=== PATIENT | male | born 1960 | race Caucasian/White ===

== ENCOUNTER 2016-07-01 18:14 | Inpatient (IN) | payer OTHER ==
[~2016-07-01] VITALS: Ht 172.7 cm; Wt 65.1 kg
[~2016-07-01 18:14] MED LIST: NALOXONE 2 MG SYG ONE
[2016-07-01] MEDS ORDERED: NALOXONE 2 MG/2 ML SYG 2 MG in DEXTROSE 5% 498 ML IV SCH ×3 (18:30→22:00)
[2016-07-01] MEDS ORDERED: SOD CHLORIDE 0.9% 1,000 ML IV ONE (18:30)
[2016-07-01] MEDS ORDERED: NALOXONE 2 MG SYG ONE (18:45)
--- NOTE | 2016-07-01 18:47 | ERA ---
ER Documentation Chief Complaint Date/Time DATE: 07/01/16 TIME: 18:45 Chief Complaint pt susannah RA from car with c/o "OD" friends dropped him off , unk drug HPI Patient is a 56-year-old male who was left in his car "for " After a narcotic overdose. Patient was given Narcan by paramedics and brought in here after being bagged for a couple minutes. Currently he is sitting up in the bed refusing to answer any questions. Remainder review systems are limited. ROS All systems reviewed and are negative except as per history of present illness. 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 Neck: Full range of motion..~ No meningismus. Resp: Clear to auscultation bilaterally Cardio: Regular rate and rhythm, no murmurs Abd: Soft, non tender, non distended. Normal bowel sounds Skin: No petechiae or rashes Back: No midline or flank tenderness Ext: No cyanosis, or edema Neur: Awake and alert, moves all extremities equally, nonfocal Psych: Normal Mood and Affect Result Diagram: 07/02/165 07/02/16 0425 Results 24 hrs Laboratory Tests Test 07/01/16 18:20 Acetaminophen Level < 10.0ug/ml Alanine Aminotransferase (ALT/SGPT) 62IU/L Albumin 4.3g/dl Albumin/Globulin Ratio 1.16 Alkaline Phosphatase 85IU/L Anion Gap 22 Aspartate Amino Transf (AST/SGOT) 52IU/L Basophils # 0.110^3/ul Basophils % 0.7% Blood Urea Nitrogen 8mg/dl Calcium Level 10.0mg/dl Carbon Dioxide Level 25mmol/L Chloride Level 106mmol/L Creatinine 1.20mg/dl Direct Bilirubin 0.00mg/dl Eosinophils # 0.110^3/ul Eosinophils % 0.8% Ethyl Alcohol Level 223.0mg/dl Globulin 3.70g/dl Glucose Level 188mg/dl Hematocrit 43.8% Hemoglobin 14.6g/dl Indirect Bilirubin 0.0mg/dl Lymphocytes # 4.710^3/ul Lymphocytes % 55.1% Mean Corpuscular Hemoglobin 31.1pg Mean Corpuscular Hemoglobin Concent 33.3g/dl Mean Corpuscular Volume 93.2fl Mean Platelet Volume 10.1fl Monocytes # 0.610^3/ul Monocytes % 6.5% Neutrophils # 3.110^3/ul Neutrophils % 36.5% Nucleated Red Blood Cells # 0.010^3/ul Nucleated Red Blood Cells % 0.0/100WBC Platelet Count 30844^3/UL Potassium Level 3.9mmol/L Red Blood Count 4.7010^6/ul Red Cell Distribution Width 12.4% Salicylates Level < 1.0mg/dl Sodium Level 149mmol/L Total Bilirubin 0.0mg/dl Total Protein 8.0g/dl White Blood Count 8.510^3/ul Current Medications Medications (Trade) Dose Ordered Sig/Arcenio Route PRN Reason Start Time Stop Time Status Last Admin Dose Admin Naloxone HCl 2 mg/ Dextrose 500 ml @ 0 mls/hr TITRATE IV 07/01/16 18:30 07/01/16 21:49 DC 07/01/16 19:24 Sodium Chloride (NS) 1,000 ml @ 1,000 mls/hr Q1H ONCE IV 07/01/16 18:30 07/01/16 19:29 DC 07/01/16 20:18 Naloxone HCl 2 mg 2 mg STK-MED ONCE .ROUTE 07/01/16 18:45 07/01/16 18:46 DC Naloxone HCl/ Dextrose (Narcan/D5W) 500 ml @ 0 mls/hr TITRATE IV 07/01/16 20:30 07/01/16 21:51 DC 07/01/16 20:40 Procedures/MDM Differential includes but is not limited to narcotic overdose, polysubstance abuse, altered mental status, head injury EKG: Rate/Rhythm: Normal Sinus Rhythm tachycardia at 100 bpm without any evidence for acute ischemia noted, no old EKG available for comparison, motion artifact noted QRS, ST, T-waves: No changes consistent w/ acute ischemia Impression: No evidence of ischemia or arrhythmia cxr no acute process noted Ct head : no acute process noted critical care time of 40 minutes not to include procedures. I spoke with the admitting doctor. We have attempted to wean the pt off the narcan drip but he becomes unresponsive and has trouble breathing whenever we stop the drip. I was informed he will need to go to the ICU while on the narcan drip. He will be admitted overnight until cleared medically. Departure Diagnosis: Primary Impression: Overdose Qualified Code: T50.904A - Overdose, undetermined intent, initial encounter Condition: BERT Min Jul 01, 2016 18:47
[2016-07-01 18:53] LABS: ADD SCAN DIFF NO
[2016-07-01 18:57] LABS: BASOPHIL # 0.1 10^3/ul (0.0-0.1); BASOPHILS % 0.7 % (0.0-2.0); EOSINOPHILS # 0.1 10^3/ul (0.0-0.5); EOSINOPHILS % 0.8 % (0.0-7.0); HEMATOCRIT 43.8 % (42.0-52.0); HEMOGLOBIN 14.6 g/dl (14.0-18.0); LYMPHOCYTES # 4.7 10^3/ul (0.8-2.9); LYMPHOCYTES % 55.1 % (15.0-51.0); MEAN CORPUSCULAR HEMOGLOBIN 31.1 pg (29.0-33.0); MEAN CORPUSCULAR HGB CONC 33.3 g/dl (32.0-37.0); MEAN CORPUSCULAR VOLUME 93.2 fl (82.0-101.0); MEAN PLATELET VOLUME 10.1 fl (7.4-10.4); MONOCYTE # 0.6 10^3/ul (0.3-0.9); MONOCYTES % 6.5 % (0.0-11.0); NEUTROPHIL # 3.1 10^3/ul (1.6-7.5); NEUTROPHILS % 36.5 % (39.0-77.0); PLATELET COUNT 252 10^3/UL (140-415); RED CELL DISTRIBUTION WIDTH 12.4 % (11.5-14.5); WHITE BLOOD COUNT 8.5 10^3/ul (4.8-10.8)
[2016-07-01 19:03] LABS: ALBUMIN 4.3 g/dl (3.3-4.9); CHLORIDE 106 mmol/L (97-110)
[2016-07-01 19:04] LABS: POTASSIUM 3.9 mmol/L (3.5-5.1); SODIUM 149 mmol/L (135-144)
[2016-07-01 19:06] LABS: ALBUMIN/GLOBULIN RATIO 1.16; ANION GAP 22 (8-16); ASPARTATE AMINO TRANSFERASE 52 IU/L (15-46); BLOOD UREA NITROGEN 8 mg/dl (7-20); CARBON DIOXIDE 25 mmol/L (21-31)
[2016-07-01 19:07] LABS: ACETAMINOPHEN < 10.0 ug/ml (10.0-30.0); ALANINE AMINOTRANSFERASE 62 IU/L (13-69); ALKALINE PHOSPHATASE 85 IU/L (42-121); GLUCOSE 188 mg/dl (70-220)
[2016-07-01 19:08] LABS: SALICYLATE < 1.0 mg/dl (5.0-30.0)
--- NOTE | 2016-07-01 19:55 | RADRPT ---
PROCEDURE: CT Brain without contrast. CLINICAL INDICATION: Altered level of consciousness. TECHNIQUE: A CT of the brain without contrast was performed utilizing axial sections from the skul l base through the vertex. The patient was scanned without intravenous contrast enhancement. Sagitta l and coronal reformatted images were obtained using the data from the axial images. Total exam DLP is 720.23 mGy-cm. CTDIvol is 45.01 mGy. One or more of the following dose reduction techniques we re used: Automated exposure control, adjustment of the mA and/or kV according to patient size, use o f iterative reconstruction technique. COMPARISON: None available FINDINGS: There is normal rabago-white matter differentiation. The ventricles and cisterns are normal. There is no intracranial hemorrhage or space-occupying lesion. There is no acute skull fracture or lytic lesion. There has been prior surgery with plates and screw s transfixing the inferior and lateral forte of the left orbit. IMPRESSION: 1. Prior left orbital surgery. 2. Otherwise normal noncontrast CT scan of the brain. 3. No intracranial hemorrhage. RPTAT: QQ .Heladio Salas MD, MD Date Time Electronically viewed and signed by .Heladio Salas MD, MD on 07/01/2016 19:54 .R/
[2016-07-01] MEDS ORDERED: ONDANSETRON 4 MG INJ IV PRN (22:00)
[2016-07-01] MEDS ORDERED: LORAZEPAM 2 MG INJ IV PRN (22:00)
[2016-07-01] MEDS ORDERED: ALBUTEROL/IPRATROPIUM (NEB) 3 ML AMP HHN PRN (22:00)
[2016-07-01] MEDS ORDERED: ACETAMINOPHEN 325 MG TAB PO PRN (22:00)
[2016-07-01] MEDS ORDERED: hydrALAzine 20 MG INJ IV PRN (22:00)
[2016-07-01] MEDS ORDERED: NA PHOSPHATE/BIPHOS 133 ML ENEMA PR PRN (22:00)
[2016-07-01] MEDS ORDERED: GLUCAGON 1 MG INJ IM PRN (22:00)
[2016-07-01] MEDS ORDERED: HYDROCODONE/APAP (5/325) TAB PO PRN (22:00)
[2016-07-01] MEDS ORDERED: DOCUSATE SODIUM 100 MG CAP PO PRN (22:00)
[2016-07-01] MEDS ORDERED: GLUCOSE GEL 15 GRAM TUBE PO PRN ×2 (22:00)
[2016-07-01] MEDS ORDERED: NITROGLYCERIN (SL) 0.4 MG TAB SL PRN (22:00)
[2016-07-01] MEDS ORDERED: MAGNESIUM HYDROXIDE 30ML CUP PO PRN (22:00)
[2016-07-01] MEDS ORDERED: DEXTROSE 50% 50 ML SYRINGE IV PRN ×2 (22:00)
[2016-07-01] MEDS ORDERED: GLUCOSE GEL 15 GRAM TUBE BUCCAL PRN (22:00)
[2016-07-01] MEDS ORDERED: NACL 0.9% 3 ML SYG IV SCH (22:00)
[2016-07-01 22:37] LABS: ADD UMIC NO; URINE BILIRUBIN (Dip) NEGATIVE (NEGATIVE); URINE BLOOD (Dip) NEGATIVE (NEGATIVE); URINE COLOR LT. YELLOW (YELLOW); URINE GLUCOSE (Dip) NEGATIVE (NEGATIVE); URINE KETONES (Dip) NEGATIVE (NEGATIVE); URINE LEUKOCYTE ESTERASE (Dip) NEGATIVE (NEGATIVE); URINE NITRITE (Dip) NEGATIVE (NEGATIVE); URINE TOTAL PROTEIN (Dip) NEGATIVE (NEGATIVE); URINE UROBILINOGEN (Dip) 0.2 E.U./dL (0.1-1.0)
[2016-07-01 22:59] LABS: BARBITURATES Negative (NEGATIVE); BENZODIAZEPINES Negative (NEGATIVE); CANNABINOIDS Negative (NEGATIVE)
[2016-07-01 23:00] LABS: COCAINE Positive (NEGATIVE); OPIATES Positive (NEGATIVE)
[2016-07-01] MEDS ORDERED: MULTIVITAMINS 10 ML, THIAMINE 100 MG, FOLIC ACID 1 MG, MAGNESIUM SULFATE 2 GM in SOD CH... IV ONE (23:30)
[2016-07-02 00:55] VITALS: PULSE 93; TEMP 98.3
[2016-07-02] MEDS ORDERED: INSULIN ASPART [NOVOLOG] 3 ML PEN SC SCH ×2 (01:00→07:30)
[2016-07-02 01:12] VITALS: Ht 172.7 cm; Wt 65.1 kg
[2016-07-02] MEDS: ACCUCHECK AT 2AM (Patients on SS coverage) XX SCH ×2 (02:00→21:07)
[2016-07-02 03:00] VITALS: BP 123/81; RESP 17
[2016-07-02] MEDS: PANTOPRAZOLE 40 MG INJ IV SCH (05:42)
[2016-07-02 05:49] LABS: CHOL/HDL RATIO 1.9 RATIO
--- NOTE | 2016-07-02 05:54 | HP ---
DATE OF ADMISSION: 07/01/2016 The patient was seen and examined by me on 07/01/2016 at 10:00 p.m. CHIEF COMPLAINT: Altered mental status and overdose. HISTORY OF PRESENT ILLNESS: The patient is a 56-year-old male with no significant past medical hist ory who apparently was found left in his car after some friends abandoned him. Most of the informat ion was obtained from the ER documentation and speaking with the ER staff and nursing as the patient is somewhat uncooperative right now with the HPI. Apparently he was "left for " after a narcot ic, specifically heroin, overdose. Paramedics found him and gave him Narcan, and he was bagged for a couple of minutes before coming to the ER. Per ER documentation, whenever Narcan tried to be turn ed off, the patient will become sleepy and lethargic, so he was on a Narcan drip for a while in the ER. Full review systems could not be obtained. His U-tox today was found positive for opiates, pre sumably heroin as well as cocaine and amphetamines, and his blood alcohol level was elevated at 223 as well. PAST MEDICAL HISTORY: As stated above. ALLERGIES: UNABLE TO OBTAIN. MEDICATIONS AT HOME: Apparently none. PAST SURGICAL HISTORY: He has had facial reconstruction surgery in the past. He has had some kind of arm surgery in the past and possible eye surgery in the past. FAMILY HISTORY: Noncontributory. SOCIAL HISTORY: Positive for IV drug abuse as mentioned above. Also, positive for smoking and posi tive for alcohol abuse. PHYSICAL EXAMINATION: VITAL SIGNS: Today, T-max 98.3, pulse 92 to 99, respirations 16, blood pressure 126/90, saturating 100% on room air. GENERAL: The patient is lying in bed, no acute distress. HEENT: The left eye is enucleated with an eye patch noted. Otherwise, right eye pupil equal, round , and reactive to light. Extraocular muscles intact. NECK: Supple, no thyromegaly. LUNGS: Clear to auscultation bilaterally. CARDIOVASCULAR: S1, S2 heard. No rubs or gallops. ABDOMEN: Soft, nontender, nondistended. Normal bowel sounds. No rebound or guarding. MUSCULOSKELETAL: No lower extremity edema bilaterally. NEUROLOGIC: No focal deficits. LABORATORIES: CBC is normal. Sodium 149, potassium 3.9, chloride 106, CO2 of 25, BUN 8, creatinine 1.2, glucose 188. LFTs are normal. Again, the U-tox results as mentioned above. Blood alcohol le carol as mentioned above. UA is negative nitrites, negative leukocyte esterase. Head CT was performe d and shows prior left orbital surgery, otherwise normal noncontrast CT scan of the brain. ASSESSMENT AND PLAN: A 56-year-old male presenting with altered mental status secondary to multi-reico bstance drug abuse and overdose and ethanol use. 1. Altered mental status again secondary to most likely drug abuse and overuse and ethanol use. We will admit the patient to med/surg floor. He is a bit more awake and alert presently, somewhat unc ooperative with exam. We will order for Narcan cautiously for the patient ____. For his elevated b lood alcohol level, we will monitor for DTs. He will be given Ativan p.r.n. We will put him on Angelica rium as well as a banana bag. We will get social media manager consult given the fact that he was homele and he overdosed on multiple illicit drugs. Monitor for signs of withdrawal. Check TSH, A1c, li pid panel. Tylenol p.r.n. pain and fevers. 2. Gastrointestinal prophylaxis, PPI. 3. Deep venous thrombosis prophylaxis, heparin subcutaneously. Dictated By: SAMI FERREIRA Conf#: [id number] DID#: [id number]
[2016-07-02 06:24] LABS: ADD SCAN DIFF NO
[2016-07-02 06:55] LABS: THYROID STIMULATING HORMONE 1.78 MIU/L (0.465-4.680)
[2016-07-02 06:59] LABS: BASOPHILS % 0.5 % (0.0-2.0); EOSINOPHILS # 0.1 10^3/ul (0.0-0.5); EOSINOPHILS % 1.5 % (0.0-7.0); HEMATOCRIT 37.6 % (42.0-52.0); HEMOGLOBIN 12.8 g/dl (14.0-18.0); LYMPHOCYTES # 3.2 10^3/ul (0.8-2.9); LYMPHOCYTES % 42.7 % (15.0-51.0); MEAN CORPUSCULAR HEMOGLOBIN 31.6 pg (29.0-33.0); MEAN CORPUSCULAR VOLUME 92.8 fl (82.0-101.0); MEAN PLATELET VOLUME 10.6 fl (7.4-10.4); MONOCYTE # 0.6 10^3/ul (0.3-0.9); MONOCYTES % 7.7 % (0.0-11.0); NEUTROPHIL # 3.6 10^3/ul (1.6-7.5); NEUTROPHILS % 47.3 % (39.0-77.0); PLATELET COUNT 212 10^3/UL (140-415); RED BLOOD COUNT 4.05 10^6/ul (4.70-6.10); RED CELL DISTRIBUTION WIDTH 12.8 % (11.5-14.5); WHITE BLOOD COUNT 7.6 10^3/ul (4.8-10.8)
[2016-07-02 07:13] LABS: POTASSIUM 4.1 mmol/L (3.5-5.1)
[2016-07-02 07:16] LABS: CREATININE 0.81 mg/dl (0.61-1.24); PHOSPHORUS 4.1 mg/dl (2.5-4.9)
[2016-07-02 07:17] LABS: CALCIUM 9.1 mg/dl (8.4-10.2); MAGNESIUM 2.1 mg/dl (1.7-2.5)
[2016-07-02] MEDS: Insulin NOVOLOG SS MILD Algorithm (SS with meals and bedtime) SC SCH ×3 (07:30→17:12)
[2016-07-02] MEDS: CHLORDIAZEPOXIDE 25 MG CAP PO SCH ×3 (08:11→20:43)
[2016-07-02] MEDS: HEPARIN 5,000 UNIT/0.5 ML SYG SC SCH ×2 (08:12→20:47)
[2016-07-02 08:32] VITALS: BP 117/76; RESP 18
[2016-07-02 19:50] VITALS: BP 109/69; RESP 16
[2016-07-02] MEDS: MULTIVITAMINS 10 ML, THIAMINE 100 MG, FOLIC ACID 1 MG in SOD CHLORIDE 0.9% 1,000 ML IVPB SCH (21:02)
--- NOTE | 2016-07-02 21:05 | PN ---
Date/Time of Note Date/Time of Note DATE: 07/02/16 TIME: 21:03 Assessment/Plan VTE Prophylaxis VTE Prophylaxis Intervention: heparin Lines/Catheters IV Catheter Type (from Nrs): Saline Lock Urinary Cath still in place: No Assessment/Plan Assessment/Plan 1. Altered mental status again secondary to most likely drug abuse and overuse and ethanol use. 2. Gastrointestinal prophylaxis, PPI. 3. Deep venous thrombosis prophylaxis, heparin subcutaneously. Pain control IVF SW consult Subjective 24 Hr Interval Summary Free Text/Dictation no suicidal ideation on repetitive questions, alert awake but want to sleep, no pain Exam/Review of Systems Vital Signs Vitals Vital Signs Date Time Temp Pulse Resp B/P Pulse Ox O2 Delivery O2 Flow Rate FiO2 07/02/16 08:32 97.8 74 18 117/76 97 07/02/16 00:55 Room Air 07/01/16 18:30 3 Intake and Output 07/01/16 07/01/16 07/02/16 14:59 22:59 06:59 Intake Total 500 ml 600 ml Output Total 450 ml Balance 500 ml 150 ml Exam GENERAL: The patient is lying in bed, no acute distress. HEENT: The left eye is enucleated with an eye patch noted. Otherwise, right eye pupil equal, round, and reactive to light. Extraocular muscles intact. NECK: Supple, no thyromegaly. LUNGS: Clear to auscultation bilaterally. CARDIOVASCULAR: S1, S2 heard. No rubs or gallops. ABDOMEN: Soft, nontender, nondistended. Normal bowel sounds. No rebound or guarding. MUSCULOSKELETAL: No lower extremity edema bilaterally. NEUROLOGIC: No focal deficits. Results Result Diagram: 07/02/16 0425 07/02/16 0425 Results 24 hrs Laboratory Tests Test 07/01/16 22:13 07/01/16 22:25 07/02/16 04:25 07/02/16 07:47 Urine Amphetamines Screen Positive Urine Barbiturates Negative Urine Benzodiazepines Screen Negative Urine Bilirubin NEGATIVE Urine Cannabinoids Negative Urine Clarity CLEAR Urine Cocaine Screen Positive Urine Color LT. YELLOW Urine Glucose NEGATIVE Urine Hemoglobin NEGATIVE Urine Ketones NEGATIVE Urine Leukocyte Esterase NEGATIVE Urine Nitrite NEGATIVE Urine Opiates Screen Positive Urine Specific Lipan <=1.005 L Urine Total Protein NEGATIVE Urine Urobilinogen 0.2 E.U./dL Urine pH 6.5 Free Thyroxine 0.93 Anion Gap 14 # Basophils # 0.0 Basophils % 0.5 Blood Urea Nitrogen 10 Calcium Level 9.1 Carbon Dioxide Level 26 Chloride Level 104 Cholesterol Level 125 Cholesterol/HDL Ratio 1.9 Creatinine 0.81 Eosinophils # 0.1 Eosinophils % 1.5 Glucose Level 93 # HDL Cholesterol 65 Hematocrit 37.6 L Hemoglobin 12.8 L Hemoglobin A1c 5.4 LDL Cholesterol, Calculated 40 Lymphocytes # 3.2 H Lymphocytes % 42.7 Magnesium Level 2.1 Mean Corpuscular Hemoglobin 31.6 Mean Corpuscular Hemoglobin Concent 34.0 Mean Corpuscular Volume 92.8 Mean Platelet Volume 10.6 H Monocytes # 0.6 Monocytes % 7.7 Neutrophils # 3.6 Neutrophils % 47.3 Nucleated Red Blood Cells # 0.0 Nucleated Red Blood Cells % 0.0 Phosphorus Level 4.1 Platelet Count 212 Potassium Level 4.1 Red Blood Count 4.05 L Red Cell Distribution Width 12.8 Sodium Level 140 Thyroid Stimulating Hormone (TSH) 1.780 Triglycerides Level 101 White Blood Count 7.6 Bedside Glucose 112 Test 07/02/16 11:34 07/02/16 16:42 Bedside Glucose 123 125 Medications Medications Current Medications Ondansetron HCl (Zofran Inj) 4 mg Q6H PRN IV NAUSEA AND/OR VOMITING; Start at 22:00 Acetaminophen (Tylenol Tab) 650 mg Q6H PRN PO PAIN LEVEL 1-3 OR FEVER; Start at 22:00 Acetaminophen/ Hydrocodone Bitart ([place] (5/325)) 1 tab Q6H PRN PO MODERATE PAIN LEVEL 4-6; Start 07/01/16 at 22:00 Docusate Sodium (Colace) 100 mg Q12H PRN PO CONSTIPATION; Start 07/01/16 at 22: 00 Magnesium Hydroxide (Milk Of Mag) 30 ml DAILY PRN PO CONSTIPATION; Start at 22:00 Sodium Biphosphate/ Sodium Phosphate (Fleet Enema) 133 ml DAILY PRN PA CONSTIPATION; Start 07/01/16 at 22:00 Pantoprazole (Protonix Iv) 40 mg DAILY@06 IV Last administered on 07/02/16 05: 42; Admin Dose 40 MG; Start 07/02/16 at 06:00 Heparin Sodium (Porcine) (Heparin (5000 Units/0.5 ml)) 5,000 unit Q12 SC Last administered on 07/02/16 20:47; Admin Dose 5,000 UNIT; Start 07/02/16 at 09:00 Lorazepam (Ativan) 0.5 mg Q6H PRN IV ANXIETY; Start 07/01/16 at 22:00 Hydralazine HCl (Apresoline) 10 mg Q6H PRN IV ELEVATED BLOOD PRESSURE; Start at 22:00 Nitroglycerin 1 tab 1 tab Q5M PRN SL ANGINA; Start 07/01/16 at 22:00 Naloxone HCl/ Dextrose (Narcan/D5W) 500 ml @ 0 mls/hr TITRATE IV ; Start at 22:00 Miscellaneous Information 1 ea NOTE XX ; Start 07/01/16 at 22:00 Glucose (Glutose) 15 gm Q15M PRN PO DECREASED GLUCOSE; Start 07/01/16 at 22:00 Glucose (Glutose) 22.5 gm Q15M PRN PO DECREASED GLUCOSE; Start 07/01/16 at 22: 00 Dextrose (D50w Syringe) 25 ml Q15M PRN IV DECREASED GLUCOSE; Start 07/01/16 at 22:00 Dextrose (D50w Syringe) 50 ml Q15M PRN IV DECREASED GLUCOSE; Start 07/01/16 at 22:00 Glucagon (Glucagen) 1 mg Q15M PRN IM DECREASED GLUCOSE; Start 07/01/16 at 22:00 Glucose (Glutose) 15 gm Q15M PRN BUCCAL DECREASED GLUCOSE; Start 07/01/16 at 22 :00 Chlordiazepoxide (Librium) 25 mg TID PO Last administered on 07/02/16 20:43; Admin Dose 25 MG; Start 07/02/16 at 09:00 Diagnostic Test (Pha) 1 ea 1 ea 02 XX ; Start 07/02/16 at 02:00 Multivitamins/ Thiamine HCl/ Folic Acid/Sodium Chloride (Mvi-12 Adult/ Vitamin B1/Folic Acid/NS) 1,011.2 ml @ 100 mls/ hr DAILY IVPB ; Start 07/02/16 at 20:00 SANTA HORNER MD Jul 02, 2016 21:05
[2016-07-03] MEDS: PANTOPRAZOLE 40 MG INJ IV SCH (05:26)
[2016-07-03 07:53] VITALS: BP 108/55; RESP 20
[2016-07-03] MEDS: MULTIVITAMINS 10 ML, THIAMINE 100 MG, FOLIC ACID 1 MG in SOD CHLORIDE 0.9% 1,000 ML IVPB SCH (09:00)
[2016-07-03] MEDS: CHLORDIAZEPOXIDE 25 MG CAP PO SCH ×2 (09:00→14:49)
[2016-07-03] MEDS: HEPARIN 5,000 UNIT/0.5 ML SYG SC SCH (09:00)
[2016-07-03 13:45] LABS: ADD SCAN DIFF NO
[2016-07-03 13:47] LABS: BASOPHILS % 0.4 % (0.0-2.0); EOSINOPHILS # 0.1 10^3/ul (0.0-0.5); EOSINOPHILS % 2.1 % (0.0-7.0); HEMATOCRIT 40.5 % (42.0-52.0); HEMOGLOBIN 13.7 g/dl (14.0-18.0); LYMPHOCYTES # 1.7 10^3/ul (0.8-2.9); LYMPHOCYTES % 31.3 % (15.0-51.0); MEAN CORPUSCULAR HEMOGLOBIN 31.6 pg (29.0-33.0); MEAN CORPUSCULAR HGB CONC 33.8 g/dl (32.0-37.0); MEAN CORPUSCULAR VOLUME 93.3 fl (82.0-101.0); MEAN PLATELET VOLUME 10.4 fl (7.4-10.4); MONOCYTE # 0.4 10^3/ul (0.3-0.9); MONOCYTES % 7.3 % (0.0-11.0); NEUTROPHIL # 3.1 10^3/ul (1.6-7.5); NEUTROPHILS % 58.7 % (39.0-77.0); PLATELET COUNT 174 10^3/UL (140-415); RED BLOOD COUNT 4.34 10^6/ul (4.70-6.10); RED CELL DISTRIBUTION WIDTH 12.6 % (11.5-14.5); WHITE BLOOD COUNT 5.3 10^3/ul (4.8-10.8)
[2016-07-03 13:56] LABS: POTASSIUM 4.1 mmol/L (3.5-5.1)
[2016-07-03 13:59] LABS: CREATININE 0.75 mg/dl (0.61-1.24)
[2016-07-03 14:00] LABS: CALCIUM 9.5 mg/dl (8.4-10.2)
--- NOTE | 2016-07-03 14:49 | DS ---
Date/Time of Note Date/Time of Note DATE: 07/03/16 TIME: 14:45 Discharge Summary Admission/Discharge Info Admit Date/Time Jul 01, 2016 at 21:46 Discharge Date/Time Final Diagnosis 1. Altered mental status again secondary to most likely drug abuse and overuse and ethanol use, resolved 2. Polysubstance abuse, advise to quit Patient Condition: Stable Hospital Course The patient is a 56-year-old male with no significant past medical history who apparently was found left in his car after some friends abandoned him. Most of the information was obtained from the ER documentation and speaking with the ER staff and nursing as the patient is somewhat uncooperative right now with the HPI. Apparently he was "left for " after a narcotic, specifically heroin, overdose. Paramedics found him and gave him Narcan, and he was bagged for a couple of minutes before coming to the ER. Per ER documentation, whenever Narcan tried to be turned off, the patient will become sleepy and lethargic, so he was on a Narcan drip for a while in the ER. Full review systems could not be obtained. His U-tox today was found positive for opiates, presumably heroin as well as cocaine and amphetamines, and his blood alcohol level was elevated at 223 as well. Patient is treated with IVF and supportive care. Symptoms improved. Patient is strongly advised to quit cocaine/meth and alcohol. He states he does not use heroine any more Home Meds No Active Prescriptions or Reported Meds Follow-up Plan PCP in one week Pending Labs Laboratory Tests Test 07/02/16 16:42 07/03/16 13:30 Bedside Glucose 125mg/dL (70-220) Anion Gap 14 (8-16) Basophils # 0.010^3/ul (0.0-0.1) Basophils % 0.4% (0.0-2.0) Blood Urea Nitrogen 10mg/dl (7-20) Calcium Level 9.5mg/dl (8.4-10.2) Carbon Dioxide Level 27mmol/L (21-31) Chloride Level 106mmol/L (97-110) Creatinine 0.75mg/dl (0.61-1.24) Eosinophils # 0.110^3/ul (0.0-0.5) Eosinophils % 2.1% (0.0-7.0) Glucose Level 96mg/dl (70-220) Hematocrit 40.5% (42.0-52.0) Hemoglobin 13.7g/dl (14.0-18.0) Lymphocytes # 1.710^3/ul (0.8-2.9) Lymphocytes % 31.3% (15.0-51.0) Mean Corpuscular Hemoglobin 31.6pg (29.0-33.0) Mean Corpuscular Hemoglobin Concent 33.8g/dl (32.0-37.0) Mean Corpuscular Volume 93.3fl (82.0-101.0) Mean Platelet Volume 10.4fl (7.4-10.4) Monocytes # 0.410^3/ul (0.3-0.9) Monocytes % 7.3% (0.0-11.0) Neutrophils # 3.110^3/ul (1.6-7.5) Neutrophils % 58.7% (39.0-77.0) Nucleated Red Blood Cells # 0.010^3/ul (0.0-0.0) Nucleated Red Blood Cells % 0.0/100WBC (0.0-0.0) Platelet Count 59520^3/UL (140-415) Potassium Level 4.1mmol/L (3.5-5.1) Red Blood Count 4.3410^6/ul (4.70-6.10) Red Cell Distribution Width 12.6% (11.5-14.5) Sodium Level 143mmol/L (135-144) White Blood Count 5.310^3/ul (4.8-10.8) ELIZ ROSS MD Jul 03, 2016 14:48
[2016-07-04] MEDS ORDERED: PANTOPRAZOLE (EC) 40 MG TAB PO SCH (06:00)
== END 2016-07-03 18:22 | disposition home or self-care (01) | DRG 918 ==
LOC: E/R 18:14 → PP2 21:46
PROVIDERS: ADMIT Hospitalist; ATTEND Hospitalist
DX: T40.1X1A Poisoning by heroin, accidental (unintentional), initial encounter (principal); F11.10 Opioid abuse, uncomplicated; R41.82 Altered mental status, unspecified; F10.10 Alcohol abuse, uncomplicated; Y90.7 Blood alcohol level of 200-239 mg/100 ml; F14.10 Cocaine abuse, uncomplicated; F15.10 Other stimulant abuse, uncomplicated
CPT/HCPCS: 36415; 70450; 80048; 80053; 80061; 80306; 80307; 81003; 82962; 83036; 83735; 84100; 84439; 84443; 85025; 87081; 87086; 93005; 93306; 96365; 96376; C9113; J1644; J1815; J2310; J3411; J3475; J7030; J7060